=== PATIENT | female | born 1980 | race African-American/Black ===

== ENCOUNTER 2020-09-07 11:58 | Emergency (ER) | payer OTHER ==
[~2020-09-07] VITALS: Ht 175.3 cm; Wt 61.2 kg
[2020-09-07 12:05] VITALS: BP 132/82
--- NOTE | 2020-09-07 12:31 | NUR ---
39 YO FEMALE, C/O URINARY URGENCY BURNING X 4 DAYS, TOOK HUSBANDS CUCO AND KRYS, NOW C/O SEVERE RIGHT FLANK PAIN, RATES 8/10. SKIN IS W/D RESP UNLAB, ABD SOFT AND NONDISTENDED, AMBULATED TO [facility] WITH UPRIGHT STEADY GAIT. URINE OBTAINED, ASSISTED TO [facility], BED IN LOW LOCKED POSITON.
[2020-09-07] MEDS ORDERED: KETOROLAC 30 MG/ML VIAL IVP ONE (12:45)
[2020-09-07] MEDS ORDERED: NACL 0.9% 1,000 ML IV SCH (12:45)
[2020-09-07] MEDS ORDERED: ONDANSETRON 4 MG/2 ML VIAL IVP ONE (13:05)
[2020-09-07 13:12] LABS: BILIRUBIN,URINE 1+ (NEGATIVE); BLOOD, URINE NEGATIVE (NEGATIVE); COLOR,URINE YELLOW (YELLOW); LEUKOCYTE ESTERASE ,URINE TRACE (NEGATIVE); NITRITE, URINE NEGATIVE (NEGATIVE); UGLUCOSE NEGATIVE (NEGATIVE)
--- NOTE | 2020-09-07 13:12 | NUR ---
20 G IV ESTABLISHED TO R AC. BLOOD SAMPLES COLLECTED AND GIVEN TO [employer] PRINTER OPERATOR
[2020-09-07 13:22] LABS: RBC,URINE 0-5 /HPF (0-5)
[2020-09-07 13:23] LABS: APPEARANCE,URINE HAZY (CLEAR)
[2020-09-07] MEDS ORDERED: NITR100C7 PO (13:33)
[2020-09-07] MEDS ORDERED: MIRABULK PO (13:33)
--- NOTE | 2020-09-07 13:45 | NUR ---
RESTING QUIETLY WITH IVF W/O, STATES RIGHT FLANK PAIN PERSISTS BUT IS LESS, DENIES NAUSEA. VSS
[2020-09-07 13:50] LABS: BASOPHILS # (AUTO) 0.1 K/uL (0.00-0.22); BASOPHILS % (AUTO) 1.2 % (0.0-2.0); EOSINOPHILS % (AUTO) 0.6 % (0.0-4.0); HEMATOCRIT 36.9 % (36-48); HEMOGLOBIN 12.5 g/dL (12.0-16.0); LYMPHOCYTES # (AUTO) 1.5 K/uL (2.5-16.5); LYMPHOCYTES % (AUTO) 28.8 % (20.5-51.1); MEAN CORPUSCULAR HEMOGLOBIN 32 pg (27-31); MEAN CORPUSCULAR HGB CONC 34 g/dL (33-37); MEAN CORPUSCULAR VOLUME 95.4 fL (80-94); MONOCYTES # (AUTO) 0.3 K/uL (0.8-1.0); MONOCYTES % (AUTO) 5.9 % (1.7-9.3); NEUTROPHILS # (AUTO) 3.2 K/uL (1.8-7.7); NEUTROPHILS % (AUTO) 63.5 % (42.2-75.2); PLATELET COUNT (AUTO) 226 K/uL (140-450); RED BLOOD CELL COUNT(AUTO) 3.87 MIL/uL (4.20-5.40); RED CELL DISTRIBUTION WIDTH 12.8 % (11.6-13.7); WHITE BLOOD COUNT (AUTO) 5.1 K/uL (4.8-10.8)
[2020-09-07 14:13] LABS: ALBUMIN 3.6 g/dL (3.4-5.0); CARBON DIOXIDE 24.7 mmol/L (21-32); CREATININE 0.8 mg/dL (0.6-1.3); POTASSIUM 3.7 mmol/L (3.5-5.1); TOTAL BILIRUBIN 0.4 mg/dL (0.0-1.0)
[2020-09-07] MEDS ORDERED: ACETAMINOPHEN EXTRA STRENGTH 500 MG TAB PO ONE (15:00)
--- NOTE | 2020-09-07 15:00 | NUR ---
UP TO BR WITH UPRIGHT STEADY GAIT, VOIDED QS.
--- NOTE | 2020-09-07 15:13 | NUR ---
MEDICATED FOR RIGHT FLANK PAIN WITH TYLENOL 500MG TABS 2 PO. DISCHARGE INSTRUCTIONS PROVIDED. EDUCATION REGARDING CONSTIPATION PROVIDED. PATIENT VERB UNDERSTANDING.
[2020-09-07 15:22] VITALS: BP 122/78
--- NOTE | 2020-09-07 15:24 | NUR ---
Patient discharged with v/s stable. Written and verbal after care instructions given and explained. Patient alert, oriented and verbalized understanding of instructions. Ambulatory with steady gait. All questions addressed prior to discharge. ID band removed. Patient advised to follow up with PMD. Rx of MACROBID, MIRALAX given. Patient educated on indication of medication including possible reaction and side effects. Opportunity to ask questions provided and answered.
--- NOTE | 2020-09-09 19:52 | NUR ---
LATE ENTRY- 0.9% NS BOLUS DISCONTINUED AT 1420
== END 2020-09-07 15:24 | disposition home or self-care (01) ==
LOC: MED 11:58
DX: K59.00 Constipation, unspecified (principal); N39.0 Urinary tract infection, site not specified; R11.0 Nausea; Z79.899 Other long term (current) drug therapy; Z88.8 Allergy status to other drugs, medicaments and biological substances
CPT/HCPCS: 36415; 74176; 80053; 81001; 81025; 83690; 85025; 87086; 96361; 96374; 96375; 99284; J1885; J2405; J7030

== ENCOUNTER 2020-12-19 06:45 | Emergency (ER) | payer OTHER ==
[~2020-12-19] VITALS: Ht 175.3 cm; Wt 63.5 kg
[~2020-12-19 06:45] MED LIST: MIRABULK PO; NITR100C7 PO
[2020-12-19 06:50] VITALS: BP 129/73
--- NOTE | 2020-12-19 06:55 | NUR ---
TO BED 11 FROM TRIAGE Addendum: 12/19/20 at 0706 by [email or web address] taken to bed #3
[2020-12-19] MEDS ORDERED: LIDOCAINE MPF 1% 10 MG/ML VIAL INJ ONE (07:10)
--- NOTE | 2020-12-19 07:18 | NUR ---
40yo f c/o right cheek abscess x 3 days. pt states that abscess grew in size and reported pain 8/10, "nerve-like." pt applied otc triple abx with no relief/improvement. (+)h/a, (-)fever. in ed, vss. with ~2cm abscess, right cheek. clear breath sounds. pt positioned comfortably in bed with 2 siderails up. ermd made aware of pt status. pmh: ovarian cyst meds: none allergy: demerol
[2020-12-19] MEDS ORDERED: NAPR-1704 PO (07:38)
[2020-12-19 07:48] VITALS: BP 129/73
== END 2020-12-19 07:48 | disposition home or self-care (01) ==
LOC: MED 06:45
DX: L02.01 Cutaneous abscess of face (principal); F17.290 Nicotine dependence, other tobacco product, uncomplicated; Z88.8 Allergy status to other drugs, medicaments and biological substances; Z79.899 Other long term (current) drug therapy; Z98.890 Other specified postprocedural states
CPT/HCPCS: 10060; 99284; J2001; 99282

== ENCOUNTER 2021-10-22 14:43 | Emergency (ER) | payer OTHER, MEDICAID ==
[~2021-10-22] VITALS: Ht 175.3 cm; Wt 63.6 kg
[~2021-10-22 14:43] MED LIST changes: +NAPR-1704 PO
[2021-10-22 15:06] VITALS: BP 124/82
--- NOTE | 2021-10-22 15:15 | NUR ---
40 Y/O FEMALE C/O LOWER BACK PAIN RADIATING TO BILATERAL SHOULDERS X2 WEEKS. DENIES INJURY/TRUAMA. DENIES DYSURIA. PT REPORTS SHE ATTEMPTED TO SEE PCP WAS NOT ABLE TO GET APPT. PT REPORTS TAKING TYLENOL WITHOUT RELIEF. PT A/O X4 WITH EVEN AND UNLABORED RESPIRATIONS. PMH:OVARIAN CYSTS, RETINITIS PIGMENTOSA, BONE DEGENERATIVE DISEASE (MID BACK) ALLERGIES: MEPERIDINE
[2021-10-22] MEDS ORDERED: KETOROLAC 30 MG/ML VIAL IM ONE (16:10)
[2021-10-22] MEDS ORDERED: ACET-503 PO (16:43)
--- NOTE | 2021-10-22 17:15 | NUR ---
Patient discharged with v/s stable. Written and verbal after care instructions ABOUT LOW BACK STRAIN AND MUSCLE STRAIN given and explained. Patient alert, oriented and verbalized understanding of instructions. Ambulatory with steady gait. All questions addressed prior to discharge. ID band removed. Patient advised to follow up with PMD. Rx of ACETAMINOPHEN/CODEINE given. Patient educated on indication of medication including possible reaction and side effects. Opportunity to ask questions provided and answered.
== END 2021-10-22 17:15 | disposition home or self-care (01) ==
LOC: MED 14:43
DX: M25.512 Pain in left shoulder (principal); M25.511 Pain in right shoulder; M54.50 Low back pain, unspecified
CPT/HCPCS: 72100; 81025; 96372; 99283; J1885

== ENCOUNTER 2022-10-15 05:41 | Day surgery (SDC) | payer OTHER, MEDICAID ==
[~2022-10-15 05:41] MED LIST changes: +ACET-503 PO
[2022-10-15] MEDS ORDERED: BUPIVACAINE-MPF 0.25% 30 ML VIAL INJ ONE (07:30)
[2022-10-15] MEDS ORDERED: LIDOCAINE 1% 500 MG/50 ML VIAL ONE (07:30)
[2022-10-15] MEDS ORDERED: fentaNYL citrate 0.05 MG/ML VIAL ONE (07:53)
[2022-10-15] MEDS ORDERED: ROCURONIUM 50 MG/5 ML VIAL IV ONE (07:56)
[2022-10-15] MEDS ORDERED: KETOROLAC 30 MG/ML VIAL ONE (07:56)
[2022-10-15] MEDS ORDERED: PROPOFOL 200 MG/20 ML VIAL IV ONE (07:56)
[2022-10-15] MEDS ORDERED: SUCCINYLCHOLINE CHLORIDE 200 MG/10 ML VIAL IVP ONE (07:56)
[2022-10-15] MEDS ORDERED: ONDANSETRON 4 MG/2 ML VIAL ONE (07:56)
[2022-10-15] MEDS ORDERED: DEXAMETHASONE 4 MG/ML VIAL ONE (07:57)
[2022-10-15] MEDS ORDERED: HYDROmorphone PFS 2 MG/ML SYR ONE (08:13)
[2022-10-15] MEDS ORDERED: LABETALOL 20 MG/4 ML VIAL IVP ONE (09:05)
[2022-10-15] MEDS ORDERED: SUGAMMADEX SODIUM 200 MG/2 ML VIAL IV ONE (09:06)
[2022-10-15] MEDS ORDERED: KETOROLAC 30 MG/ML VIAL IVP ONE (09:45)
== END 2022-10-15 12:40 | disposition home or self-care (01) ==
LOC: MDS 05:41 → MMU 05:50 → MDS 12:40
PROVIDERS: ATTEND Obstetrics & Gynecology
DX: N80.9 Endometriosis, unspecified (principal); N83.201 Unspecified ovarian cyst, right side; N73.6 Female pelvic peritoneal adhesions (postinfective); F41.9 Anxiety disorder, unspecified; F32.A Depression, unspecified; N30.00 Acute cystitis without hematuria; R87.612 Low grade squamous intraepithelial lesion on cytologic smear of cervix (LGSIL); G89.18 Other acute postprocedural pain; Z30.09 Encounter for other general counseling and advice on contraception; Z79.899 Other long term (current) drug therapy
CPT/HCPCS: 58662; 82374; 93005; J0330; J1100; J1170; J1885; J2001; J2405; J2704; J3010; J3490; J7030; J7120

== ENCOUNTER 2023-08-31 05:09 | Emergency (ER) | payer OTHER ==
[~2023-08-31] VITALS: Ht 175.3 cm; Wt 64.4 kg
[2023-08-31 05:17] VITALS: BP 97/67; PULSE 79; RESP 18; TEMP 98.5; O2SAT 100
[2023-08-31] MEDS ORDERED: KETOROLAC 60 MG/2 ML VIAL IM ONE (05:35)
[2023-08-31 05:50] VITALS: O2SAT 98
[2023-08-31 06:01] LABS: EOSINOPHILS # (AUTO) 0.1 K/uL (0-0.4); HEMATOCRIT 39.7 % (36-48); HEMOGLOBIN 13.4 g/dL (12.0-16.0); LYMPHOCYTES # (AUTO) 1.6 K/uL (2.5-16.5); LYMPHOCYTES % (AUTO) 45.6 % (20.5-51.1); MEAN CORPUSCULAR HEMOGLOBIN 32 pg (27-31); MEAN CORPUSCULAR HGB CONC 34 g/dL (33-37); MEAN CORPUSCULAR VOLUME 94.4 fL (80-94); MONOCYTES # (AUTO) 0.3 K/uL (0.8-1.0); MONOCYTES % (AUTO) 9.3 % (1.7-9.3); NEUTROPHILS # (AUTO) 1.5 K/uL (1.8-7.7); NEUTROPHILS % (AUTO) 42.1 % (42.2-75.2); PLATELET COUNT (AUTO) 236 K/uL (140-450); RED CELL DISTRIBUTION WIDTH 13.2 % (11.6-13.7); WHITE BLOOD COUNT (AUTO) 3.5 K/uL (4.8-10.8)
[2023-08-31 06:15] LABS: ANION GAP 10.3 (8-16); CALCIUM 9.1 mg/dL (8.5-10.1); CARBON DIOXIDE 28.6 mmol/L (21-32); CREATININE 0.9 mg/dL (0.6-1.3); POTASSIUM 3.9 mmol/L (3.5-5.1)
[2023-08-31] MEDS: NACL 0.9% 1,000 ML IV ONE (06:19)
[2023-08-31 06:21] LABS: ALBUMIN 3.8 g/dL (3.4-5.0); BILIRUBIN,DIRECT 0.1 mg/dL (0.0-0.3); INR 0.92 (0.8-1.2); PARTIAL THROMBOPLASTIN TIME 25.9 secs (22-35.6); PROTHROMBIN TIME 9.7 secs (10.8-13.4); TOTAL BILIRUBIN 0.4 mg/dL (0.0-1.0); TOTAL PROTEIN, SERUM 7.3 g/dL (6.4-8.2)
[2023-08-31] MEDS ORDERED: ACET-10509 PO (07:05)
[2023-08-31] MEDS ORDERED: IBUP-2213 PO (07:05)
[2023-08-31] MEDS ORDERED: KETOROLAC 30 MG/ML VIAL ONE (07:11)
[2023-08-31] MEDS ORDERED: TRAM50TA3 PO (07:12)
[2023-08-31] MEDS: KETOROLAC 30 MG/ML VIAL IVP ONE (07:14)
[2023-08-31 09:10] VITALS: TEMP 98.5
[2023-08-31 09:11] VITALS: BP 106/79; PULSE 84; RESP 16; O2SAT 100
[2023-08-31 12:26] LABS: APPEARANCE,URINE TURBID (CLEAR); BILIRUBIN,URINE NEGATIVE (NEGATIVE); BLOOD, URINE 1+ (NEGATIVE); LEUKOCYTE ESTERASE ,URINE 1+ (NEGATIVE); NITRITE, URINE POSITIVE (NEGATIVE); PROTEIN,URINE 1+ (NEGATIVE); UGLUCOSE 2+ (NEGATIVE)
[2023-08-31 12:28] LABS: COLOR,URINE AMBER (YELLOW)
[2023-08-31 12:35] LABS: BACTERIA,URINE 10-30 (MOD) /HPF (None Seen); SQUAMOUS EPITHELIAL CELL,UR 0-3 (FEW) /LPF (0-3 (FEW))
== END 2023-08-31 09:10 | disposition home or self-care (01) ==
LOC: MED 05:09
DX: N83.202 Unspecified ovarian cyst, left side (principal); N93.9 Abnormal uterine and vaginal bleeding, unspecified; Z98.890 Other specified postprocedural states; Z79.899 Other long term (current) drug therapy; Z88.5 Allergy status to narcotic agent
CPT/HCPCS: 36415; 76830; 80048; 80076; 81001; 81025; 85025; 85610; 85730; 86886; 86900; 86901; 96361; 96374; 99285; J1885; J7030; Q0092